=== PATIENT | female | born 1965 | race Caucasian/White ===

== ENCOUNTER 2017-06-13 06:03 | Day surgery (SDC) | payer BC ==
[2017-06-13] VITALS (11 sets, daily range): BP systolic 94–139; BP diastolic 57–97
[~2017-06-13] VITALS: Ht 175.3 cm; Wt 83.9 kg
[~2017-06-13 06:03] MED LIST: ECHINACEA167 MG PO; FERROUS GLUCON324 M1 PO; IRON55 M1 PO; VIT D PO; VITAMIN C250 MG ORAL; VITAMIN D250000 UNI1 ORAL; [UNRECOGNIZED DRUG - OTHER] PO
[2017-06-13] MEDS ORDERED: cefOXitin Sod 1 GM in NS 55 ML IVPB ONE (07:00)
[2017-06-13] MEDS ORDERED: Metoclopramide 10mg/2ml Inj ONE (07:30)
[2017-06-13] MEDS ORDERED: LR 1000ml ONE (07:30)
[2017-06-13] MEDS ORDERED: Sterile Water Irrig 1000ml IRRIG ONE (07:30)
[2017-06-13] MEDS ORDERED: NS Irrig 1000ml ONE (07:30)
[2017-06-13] MEDS ORDERED: Midazolam 2mg/2ml Inj ONE (07:30)
[2017-06-13] MEDS ORDERED: Glycopyrrolate 0.2mg/ml 1ml Vial ONE (07:30)
[2017-06-13] MEDS ORDERED: Propofol 200mg/20ml IV ONE (07:30)
[2017-06-13] MEDS ORDERED: Ketorolac 30mg Inj ONE (07:30)
[2017-06-13] MEDS ORDERED: fentaNYL 100 mcg/2 mL IV ONE (07:30)
--- NOTE | 2017-06-13 08:06 | Pre-Procedure Note/Attestation ---
Pre-Procedure Note/Attestation Complete Prior to Procedure Planned Procedure: not applicable Procedure Narrative: Hysteroscopy, dilation and curettage Hydrothermoablation of endometrium Indications for Procedure Pre-Operative Diagnosis: heavy and irregular menses Attestation I attest that I discussed the nature of the procedure; its benefits; risks and complications; and alternatives (and the risks and benefits of such alternatives ), prior to the procedure, with the patient (or the patient's legal ambulatory service representative). I attest that, if there was a reasonable possibility of needing a blood transfusion, the patient (or the patient's legal ambulatory service representative) was given the [place] [employer] standardized written summary, pursuant to the Dmitri Silvino Blood Safety Act ([place] Health and Safety Code # 1645, as amended). I attest that I re-evaluated the patient just prior to the surgery and that there has been no change in the patient's H&P, except as documented below: CHASIDY DALY Jun 13, 2017 08:06
[2017-06-13] MEDS ORDERED: LR 1000ml 1,000 ML IVLG SCH (08:13)
[2017-06-13] MEDS ORDERED: Ketorolac 30mg Inj IV PRN (08:15)
[2017-06-13] MEDS ORDERED: Hydromorphone 0.5mg/0.5ml inj IVP PRN (08:15)
[2017-06-13] MEDS ORDERED: DiphenhydrAMINE 50mg/ml Inj IVP PRN (08:15)
[2017-06-13] MEDS ORDERED: Midazolam 2mg/2ml Inj IVP PRN (08:15)
[2017-06-13] MEDS ORDERED: cefOXitin 1gm Inj ONE (08:16)
--- NOTE | 2017-06-13 08:17 | Anethesia Preoperative Eval ---
Anesthesia Pre-op PMH/ROS General Date of Evaluation: Jun 13, 2017 Time of Evaluation: 07:30 Anesthesiologist: Juma ASA Score: ASA 2 Mallampati Score Class I : Soft palate, uvula, fauces, pillars visible Class II: Soft palate, uvula, fauces visible Class III: Soft palate, base of uvula visible Class IV: Only hard plate visible Mallampati Classification: Class II Surgeon: Karolina Diagnosis: Iregular Bleding Surgical Procedure: DC Hysteroscopy Anesthesia History: none Family History: no anesthesia problems Allergies: Coded Allergies: NO KNOWN ALLERGIES (Unverified Allergy, Unknown, 06/12/17) Uncoded Allergies: plastic tape (Allergy, Mild, rash, 06/12/17) redness Medications: see eMAR Anesthesia Pre-op Phys. Exam Physician Exam Last Vital Signs Date Time Temp Pulse Resp B/P (MAP) Pulse Ox O2 Delivery O2 Flow Rate FiO2 06/13/17 06:41 97.7 68 20 126/75 97 Room Air 97.7 Constitutional: NAD Neurologic: CN 2-12 intact Cardiovascular: RRR Respiratory: CTA Gastrointestinal: S/NT/ND Airway Exam Mallampati Score: Class II MO: full ROM: full Teeth: intact Anesthesia Pre-op A/P Labs Urine Test Test 06/13/17 06:15 Urine HCG, Qualitative Negative Risk Assessment & Plan Plan: ga Status Change Before Surgery: No Pre-Antibiotics Drug: Cefoxitin Given Within 1 Hr of Incision: Yes Time Given: 08:00 Umesh Dennison M.D. Jun 13, 2017 08:17
--- NOTE | 2017-06-13 08:22 | Immediate Post-Op Evaluation ---
Immediate Post-Op Evalulation Immediate Post-Op Evalulation Procedure: DC Hysteroscopy Date of Evaluation: Jun 13, 2017 Time of Evaluation: 09:00 IV Fluids: 1000 Blood Products: 0 Estimated Blood Loss: 0 Urinary Output: 300 Blood Pressure Systolic: 122 Blood Pressure Diastolic: 65 Pulse Rate: 77 Respiratory Rate: 19 O2 Sat by Pulse Oximetry: 99 Temperature (Fahrenheit): 98 Pain Score (1-10): 0 Nausea: No Vomiting: No Patient Status: awake, reacts, patent, extubated, none Hydration Status: adequate Drug: Cefoxitin Given Within 1 Hr of Incision: Yes Time Given: 08:00 Umesh Dennison M.D. Jun 13, 2017 08:22
--- NOTE | 2017-06-13 09:05 | Brief Operative Note ---
Immediate Post Operative Note Operative Note Pre-op Diagnosis: heavy and irregular menses Procedure: Hysteroscopy , Dilation and curettage, Hydrothermoablation Post-op Diagnosis: same and submucousal fibroid 30% penetrating into the cavity of uterus Post-op Diagnosis: same as pre-op Surgeon: Karolina Anesthesiologist: Umesh Dennison M.D. Anesthesia: general Specimen: yes Complications: none Condition: stable Fluids: 800 cc crystalloids Estimated Blood Loss: minimal Drains: none Implant(s) used?: No CHASIDY DALY Jun 13, 2017 09:05
[2017-06-13] MEDS ORDERED: Norco 5mg/325mg tab ORAL PRN (10:00)
[2017-06-13] MEDS ORDERED: D5 1/2NS 1,000 ML IV SCH (10:00)
[2017-06-13] MEDS ORDERED: HYDROmorphone 1mg/ml Carpuject SUBQ PRN (10:00)
[2017-06-13] MEDS ORDERED: Tylenol #3 tab (300mg/30mg) ORAL PRN (10:00)
--- NOTE | 2017-06-13 17:00 | Operative Note - Dictated ---
DATE OF OPERATION: 06/13/2017 PREOPERATIVE DIAGNOSES: Metromenorrhagia and submucosal fibroids. POSTOPERATIVE DIAGNOSES: Metromenorrhagia and submucosal fibroids. PROCEDURE: Hysteroscopy, dilation and curettage, and hydrothermal ablation or HTA. SURGEON: Ailin Turcios M.D. ANESTHESIOLOGIST: Umesh Dennison M.D. ANESTHESIA: General. ESTIMATED BLOOD LOSS: Minimal. SPECIMENS: Endocervical curettage and endometrial curettage. PROCEDURE IN DETAIL: After ensuring informed consent, the patient was taken to the operating room. The patient was sterilely prepped and draped. A speculum was placed in the vagina. Cervix was dilated to an 8 Hegar dilator. Hysteroscope was placed inside the uterine cavity. Uterine cavity was distended with normal saline. Using the HTA hysteroscope, the cavity appeared to be normal except for a posterior submucosal fibroid, which was about one-third into the cavity of the uterus. Next, fractional curettage was performed. Next, hysteroscope was replaced into the uterine cavity. HTA ablation that was commenced, namely fluid inside the uterine cavity was heated to 90 degrees Celsius for 10 minutes. During this time, there was negligible fluid loss according to the machine. There was a 2-minute cool down. Diagnostic hysteroscopy was resumed and uterus appeared to be uniformly ablated. Hysteroscope was removed. All instrument and lap counts were correct x2. At the end of the procedure, the patient was taken to the recovery area breathing on her own and in stable condition. Ailin Turcios M.D. DR: HOA JOB#: [id number] CC:
== END 2017-06-13 11:40 | disposition home or self-care (01) ==
LOC: SUR 06:03
DX: N92.1 Excessive and frequent menstruation with irregular cycle (principal); D25.0 Submucous leiomyoma of uterus
CPT/HCPCS: 58563; 81025; J0694; J1885; J2250; J2405; J2704; J2765; J3010; J7120; 94003; 94150